=== PATIENT | female | born 1975 | race Hispanic/Latino ===

== ENCOUNTER 2017-12-09 10:30 | Outpatient (CLI) | payer MEDICAID ==
--- NOTE | 2017-12-09 12:00 | XRay Report ---
RIGHT FOOT 2 VIEWS: 12/09/17 CLINICAL: Pain. FINDINGS: The bones and joints are normal. No fracture or dislocation. No bone lesion. Moderate soft tissue swelling of the dorsum of the forefoot and midfoot as well as moderate soft tissue swelling at the ankle. No foreign body or soft tissue air. IMPRESSION: Nonspecific soft tissue swelling with no bone or joint abnormality.
--- NOTE | 2017-12-09 12:01 | XRay Report ---
XRAY LUMBAR SPINE THREE VIEWS: 12/09/17 10:30:00 CLINICAL: Lumbago with right sided sciatica. FINDINGS: Normal vertebral body height, alignment and disk spaces. The pedicles are intact. No fracture. Normal soft tissues. IMPRESSION: Normal.
== END 2017-12-09 10:31 | disposition home or self-care (01) ==
LOC: SPVIMAG 10:30
PROVIDERS: ATTEND Internal Medicine
DX: R22.41 Localized swelling, mass and lump, right lower limb (principal); M54.41 Lumbago with sciatica, right side
CPT/HCPCS: 72100